=== PATIENT | female | born 1960 | race African-American/Black ===

== ENCOUNTER → 2017-09-09 | Outpatient (CLI) | payer BC ==
[~2017-09-09] VITALS: Ht 160 cm; Wt 59.5 kg
[~2017-09-09] MED LIST: AMLO1CAP5 PO; ASPI81 PO; ATOR20TA86 PO; BIOT5TAB PO; CALC-789 PO; CHOL200016 PO; LINA145C PO; OMEG-150 PO; UBID1CAP61 PO
[2017-09-09 11:17] VITALS: BP 121/70
== END | disposition home or self-care (01) ==
LOC: SRCNTR 11:01
PROVIDERS: ATTEND Internal Medicine Cardiovascular Disease
DX: I11.9 Hypertensive heart disease without heart failure (principal); E78.5 Hyperlipidemia, unspecified; I42.9 Cardiomyopathy, unspecified; K21.9 Gastro-esophageal reflux disease without esophagitis; K31.84 Gastroparesis; K59.00 Constipation, unspecified; Z79.82 Long term (current) use of aspirin
CPT/HCPCS: G0463

== ENCOUNTER → 2017-10-14 | Outpatient (CLI) | payer BC ==
[~2017-10-14] VITALS: Ht 162.6 cm; Wt 59.0 kg
[2017-10-14 10:54] VITALS: BP 120/64
== END | disposition home or self-care (01) ==
LOC: SRCNTR 10:36
PROVIDERS: ATTEND Internal Medicine Cardiovascular Disease
DX: M17.11 Unilateral primary osteoarthritis, right knee (principal); I11.9 Hypertensive heart disease without heart failure; E78.5 Hyperlipidemia, unspecified; Z85.118 Personal history of other malignant neoplasm of bronchus and lung
CPT/HCPCS: G0463

== ENCOUNTER → 2018-02-23 | Outpatient (CLI) | payer BC ==
[~2018-02-23] VITALS: Ht 160 cm; Wt 62.5 kg
[~2018-02-23] MED LIST changes: -CHOL200016 PO; +CHOL200059 PO
[2018-02-23 11:33] VITALS: BP 112/72
== END | disposition home or self-care (01) ==
LOC: SRCNTR 11:25
PROVIDERS: ATTEND Internal Medicine Cardiovascular Disease
DX: E78.5 Hyperlipidemia, unspecified (principal); K21.9 Gastro-esophageal reflux disease without esophagitis; I11.9 Hypertensive heart disease without heart failure; M67.432 Ganglion, left wrist; Z85.3 Personal history of malignant neoplasm of breast
CPT/HCPCS: G0463